=== PATIENT | male | born 2000 | race Hispanic/Latino ===

== ENCOUNTER 2025-05-04 23:12 | Emergency (ER) | payer OTHER ==
[2025-05-04] MEDS ORDERED: IPRATROPIUM BROM 0.5MG/2.5ML ONE (23:52)
[2025-05-04] MEDS ORDERED: ALBUTEROL 2.5 MG/3 ML NEB SOL ONE (23:52)
[2025-05-04] MEDS ORDERED: METHYLPREDNISOLONE 125 MG INJ ONE (23:53)
--- NOTE | 2025-05-05 01:33 | EDPHYS ---
Physician Documentation [facility] Name: Anuj Ko Age: 25 yrs Sex: Male : 2000 Arrival Date: 05/04/2025 Time: 23:12 Bed 3 Private MD: ED Physician Reid Mayes HPI: 05/04 23:30 This 25 yrs old Male presents to ER via Ambulatory with complaints of cp Shortness Of Breath, rib pain. 23:30 The patient has shortness of breath at rest. Onset: The symptoms/episode began/occurred cp gradually. 23:30 Associated signs and symptoms: Pertinent negatives: productive cough, fever, vomiting, cp chills, sore throat. 23:30 Patient is a 25-year-old male with past medical history significant for asthma who cp reports he ran out of his albuterol inhaler about 3 to 4 days ago. Presents to the emergency department complaining of shortness of breath and pain to his right lower rib area. Patient denies any injury or trauma to the area. Patient denies cough, congestion, sore throat and/or fever. Historical: - Allergies: 05/05 00:04 No Known Allergies; ha1 - PMHx: 00:04 Asthma; ha1 - Immunization history:: Adult Immunizations up to date. - Infectious Disease History:: Denies. - Social history:: Smoking status: Patient denies any tobacco usage or history of. ROS: 05/04 23:35 Cardiovascular: Positive for pain right lower rib area, cp 23:35 Eyes: Negative for injury, pain, redness, and discharge, cp 23:35 Constitutional: Negative for body aches, chills, fever, poor PO intake, 23:35 ENT: Negative for drainage from ear(s), ear pain, sore throat, difficulty swallowing, difficulty handling secretions, 23:35 Respiratory: Positive for shortness of breath, Negative for cough, wheezing, 23:35 Abdomen/GI: Negative for abdominal pain, vomiting, diarrhea, constipation, 23:35 Neuro: Negative for altered mental status, dizziness, headache, weakness, 23:35 All other systems are negative, Exam: 23:40 Constitutional: The patient appears in no acute distress, alert, awake, cp non-diaphoretic, non-toxic, well developed, well nourished, 23:40 Head/Face: Normocephalic, atraumatic. cp 23:40 Eyes: Periorbital structures: appear normal, Conjunctiva: normal, no exudate, no injection, Sclera: no appreciated abnormality, Lids and lashes: appear normal, bilaterally, 23:40 ENT: External ear(s): are unremarkable, Nose: is normal, Mouth: Lips: moist, Oral mucosa: moist, Posterior pharynx: Airway: no evidence of obstruction, patent, 23:40 Chest/axilla: Inspection: normal, Palpation: crepitus, is not appreciated, tenderness, that is moderate, of the right lower anterior/lateral rib area, 23:40 Cardiovascular: Rate: normal, Rhythm: regular, Edema: is not appreciated, JVD: is not appreciated, 23:40 Respiratory: the patient does not display signs of respiratory distress, Respirations: normal, no use of accessory muscles, no retractions, labored breathing, is not present, Breath sounds: are clear throughout, no decreased breath sounds, no stridor, no wheezing, 23:40 Abdomen/GI: Inspection: abdomen appears normal, Palpation: abdomen is soft and non-tender, in all quadrants, 23:40 Back: pain, is absent, ROM is normal, 23:40 Skin: no rash present. Vital Signs: 23:19 BP 122 / 87; Pulse 88; Resp 18 S; Temp 98.1(O); Pulse Ox 99% on R/A; Weight 108.86 kg; ha1 Height 5 ft. 9 in. ; 23:30 BP 115 / 85; Pulse 84; Resp 17; Pulse Ox 99% on R/A; kb4 05/05 00:00 BP 100 / 62; Pulse 76; Resp 18; Pulse Ox 100% on R/A; kb4 01:00 BP 124 / 76; Pulse 72; Resp 17; Pulse Ox 99% on R/A; kb4 01:30 BP 125 / 84; Pulse 80; Resp 16; Pulse Ox 98% on R/A; kb4 1003 23:19 Body Mass Index 35.44 (108.86 kg, 175.26 cm) ha1 MDM: 05/04 23:23 Medical Screening Exam initiated cp 05/05 00:00 Differential diagnosis: asthma, Bronchitis pneumonia, Pneumothorax reactive airway cp disease, rib fracture. 01:33 Data reviewed: vital signs, nurses notes, radiologic studies, plain films, and as a cp result, I will discharge patient. 01:33 Counseling: I had a detailed discussion with the patient and/or guardian regarding the cp historical points, exam findings, and any diagnostic results supporting the discharge/admit diagnosis, radiology results, to return to the emergency department if symptoms worsen or persist or if there are any questions or concerns that arise at home. 01:33 Response to treatment: the patient's symptoms have mildly improved after treatment, and cp as a result, I will discharge patient. 05/04 23:38 Order name: XRAY Ribs RIGHT cp Administered Medications: 00:00 Drug: MethylPrednisoLONE IVP 125 mg IVP once Route: IVP; Site: right antecubital; al5 01:00 Follow up: Response: No adverse reaction kb4 00:00 Drug: Albuterol Inhalation 2.5 mg Inhalation once Route: Inhalation; al5 01:00 Follow up: Response: No adverse reaction kb4 00:00 Drug: Ipratropium Inhalation Aerosol 0.5 mg Inhalation once Route: Inhalation; al5 01:00 Follow up: Response: No adverse reaction kb4 Disposition Summary: 05/05/25 01:33 Discharge Ordered Notes: Location: Home cp Problem: new cp Symptoms: have improved cp Condition: Stable cp Diagnosis - Intercostal pain cp - Shortness of breath cp Followup: cp - With: Private Physician - When: 2 - 3 days - Reason: Worsening of condition Discharge Instructions: - Discharge Summary Sheet cp - Chest Wall Pain cp - Shortness of Breath, Adult cp Forms: - Medication Reconciliation Form cp - Antibiotic Education cp - Prescription Opioid Use cp - Patient Portal Instructions cp - Leadership Thank You Letter cp Prescriptions: - albuterol sulfate 90 mcg/actuation Inhalation HFA Aerosol Inhaler - inhale 1 puff INHALATION route every 4 to 6 hours as needed for shortness of cp breath or wheezing; 1 unit; Refills: 0, Product Selection Permitted - Ibuprofen 800 mg Oral Tablet - take 1 tablet ORAL route every 8 hours As needed take with food; 30 tablet; cp Refills: 0, Product Selection Permitted - Medrol (Mehul) 4 mg Oral Tablets, Dose Pack - take 1 tablet ORAL route as directed - follow package instructions; 1 packet; cp Refills: 0, Product Selection Permitted Addendum: 05/08/2025 09:06 Co-signature as Attending Physician, Reid Mayes DO I reviewed the patient's care t t7 provided by the Advanced Practice Provider and agree with the diagnosis and treatment plan. Signatures: Dispatcher [employer] EDMS Navdeep Griffin PA-C PA-C cp Ayala, Heidy RN RN ha1 Marilee Luong RN RN al5 Reid Mayes DO DO tt7 Bronwyn Hines RN kb4 Corrections: (The following items were deleted from the chart) 05/04 23:39 23:39 Ribs Right+RAD.RAD.BRZ ordered. EDMS EDMS
--- NOTE | 2025-05-05 01:33 | ER ---
Nurse's Notes [facility] Name: Anuj Ko Age: 25 yrs Sex: Male : 2000 Arrival Date: 05/04/2025 Time: 23:12 Bed 3 Private MD: Diagnosis: Intercostal pain;Shortness of breath Presentation: 05/04 23:19 Chief complaint: Patient states: USES ALBUTEROL DAILY HAS RAN OUT OF ALBUTEROL FOR THE ha1 PAST 3-4 DAYS. FEELING SHORTNESS OF BREATH. RIB PAIN WHEN BREATHING OR MOVEMENT. 23:19 Coronavirus screen: Client denies travel out of the [place] in the last 14 days. Ebola ha1 Screen: No symptoms or risks identified at this time. Initial Sepsis Screen: Does the patient meet any 2 criteria? No. Patient's initial sepsis screen is negative. Does the patient have a suspected source of infection? No. Patient's initial sepsis screen is negative. Risk Assessment: Do you want to hurt yourself or someone else? Patient reports no desire to harm self or others. Onset of symptoms was May 05, 2025. 23:19 Method Of Arrival: Ambulatory ha1 23:19 Acuity: CARLA 3 ha1 Triage Assessment: 05/05 00:04 General: Appears uncomfortable, Behavior is calm, cooperative. ha1 00:05 Pain: Complains of pain in RIB PAIN Pain currently is 6 out of 10 on a pain scale. ha1 Neuro: Level of Consciousness is awake, alert, obeys commands, Oriented to person, place, time, situation. Cardiovascular: Capillary refill < 3 seconds Patient's skin is warm and dry. Respiratory: Reports shortness of breath at rest on exertion Airway is patent Respiratory effort is even, unlabored, Respiratory pattern is regular, symmetrical, Onset: The symptoms/episode began/occurred gradually, the patient has moderate shortness of breath. GI: No signs and/or symptoms were reported involving the gastrointestinal system. Historical: - Allergies: 00:04 No Known Allergies; ha1 - PMHx: 00:04 Asthma; ha1 - Immunization history:: Adult Immunizations up to date. - Infectious Disease History:: Denies. - Social history:: Smoking status: Patient denies any tobacco usage or history of. Screenin/03 23:32 [facility] ED Fall Risk Assessment (Adult) History of falling in the last 3 months, al5 including since admission No falls in past 3 months (0 pts) Confusion or Disorientation No (0 pts) Intoxicated or Sedated No (0 pts) Impaired Gait No (0 pts) Mobility Assist Device Used No (0 pt) Altered Elimination No (0 pt) Score/Fall Risk Level 0 - 2 = Low Risk Oriented to surroundings, Maintained a safe environment, Hourly rounding (assess needs \T\ fall precautionary measures) done. Abuse screen: Denies threats or abuse. Denies injuries from another. Nutritional screening: No deficits noted. Tuberculosis screening: No symptoms or risk factors identified. Assessment: 23:42 General: Appears in no apparent distress. uncomfortable, Behavior is calm, cooperative. al5 Pain: Complains of pain in right sixth rib, right seventh rib, right eighth rib and right ninth rib Pain currently is 6 out of 10 on a pain scale. Neuro: Level of Consciousness is awake, alert, obeys commands, Oriented to person, place, time, situation. Cardiovascular: Capillary refill < 3 seconds Patient's skin is warm and dry. Respiratory: Airway is patent Respiratory effort is even, unlabored, Respiratory pattern is regular, symmetrical. GI: No signs and/or symptoms were reported involving the gastrointestinal system. : No signs and/or symptoms were reported regarding the genitourinary system. EENT: No signs and/or symptoms were reported regarding the EENT system. Derm: Skin is intact, is healthy with good turgor, Skin is pink, warm \T\ dry. normal. Musculoskeletal: Circulation, motion, and sensation intact. Range of motion: intact in all extremities, Reports pain in right sixth rib, right seventh rib, right eighth rib and right ninth rib. 05/05 01:05 Reassessment: Patient appears in no apparent distress at this time. Patient and/or al5 family updated on plan of care and expected duration. Pain level reassessed. Patient is alert, oriented x 3, equal unlabored respirations, skin warm/dry/pink. Patient states feeling better. Patient states symptoms have improved. Respiratory: Breath sounds are clear bilaterally. Vital Signs: 05/04 23:19 BP 122 / 87; Pulse 88; Resp 18 S; Temp 98.1(O); Pulse Ox 99% on R/A; Weight 108.86 kg; ha1 Height 5 ft. 9 in. ; 23:30 BP 115 / 85; Pulse 84; Resp 17; Pulse Ox 99% on R/A; kb4 05/05 00:00 BP 100 / 62; Pulse 76; Resp 18; Pulse Ox 100% on R/A; kb4 01:00 BP 124 / 76; Pulse 72; Resp 17; Pulse Ox 99% on R/A; kb4 01:30 BP 125 / 84; Pulse 80; Resp 16; Pulse Ox 98% on R/A; kb4 05/04 23:19 Body Mass Index 35.44 (108.86 kg, 175.26 cm) ha1 ED Course: 05/04 23:18 Patient arrived in ED. im 23:21 Navdeep Griffin PA-C is PHCP. cp 23:21 Reid Mayes DO is Attending Physician. cp 23:30 Marilee Luong, CYNDI is Primary Nurse. al5 23:30 No provider procedures requiring assistance completed. Inserted saline lock: 20 gauge al5 in right antecubital area, using aseptic technique. Blood collected. Flushed with 10 mL NS. 23:32 Patient has correct armband on for positive identification. Bed in low position. Call al5 light in reach. Side rails up X 1. Provided Education on: plan of care. 05/05 00:04 Triage completed. ha1 00:49 XRAY Ribs RIGHT In Process Unspecified. EDMS 01:46 IV discontinued, intact, bleeding controlled, No redness/swelling at site. Pressure al5 dressing applied. Administered Medications: 00:00 Drug: MethylPrednisoLONE IVP 125 mg IVP once Route: IVP; Site: right antecubital; al5 01:00 Follow up: Response: No adverse reaction kb4 00:00 Drug: Albuterol Inhalation 2.5 mg Inhalation once Route: Inhalation; al5 01:00 Follow up: Response: No adverse reaction kb4 00:00 Drug: Ipratropium Inhalation Aerosol 0.5 mg Inhalation once Route: Inhalation; al5 01:00 Follow up: Response: No adverse reaction kb4 Medication: 05/04 23:32 VIS not applicable for this client. al5 Outcome: 05/05 01:33 Discharge ordered by . cp 01:46 Discharged to home ambulatory, with significant other, al5 01:46 Condition: good 01:46 Discharge instructions given to patient, significant other, Instructed on discharge instructions, follow up and referral plans. medication usage, Demonstrated understanding of instructions, follow-up care, medications, Prescriptions given X 3, 01:46 Patient left the ED. al5 Signatures: Dispatcher [employer] EDMS Navdeep Griffin PA-C PA-C cp Ayala, Heidy RN RN ha1 Radha Green Amanda, RN RN al5 Bronwyn Hines RN RN kb4 Corrections: (The following items were deleted from the chart) 00:07 10 23:19 Chief complaint: Patient states: USES ALBUTEROL DAILY HAS RAN OUT OF ha1 ALBUTEROL FOR THE PAST 3-4 DAYS. FEELING SHORTNESS OF BREATH ha1 05/05 00:10 00:04 General: Appears uncomfortable, Behavior is calm, cooperative, ha1 ha1 00:10 00:04 Pain: ha1 ha1
[2025-05-05 01:56] VITALS: TEMP 98.1
[2025-05-05 02:03] VITALS: BP 125/84; O2SAT 98
--- NOTE | 2025-05-05 04:23 | RAD REPORT ---
Clinical Indication: Bed Name: 3; PAIN Comparison: None FINDINGS: Right Rib Series: 4 views The AP and oblique views of the Right ribs show no displaced rib fractures. The costovertebral juncti ons are unremarkable. There are no associated pleural effusions or pneumothorax. There are no underlying pulmonary parenchy mal opacities noted to suggest pulmonary contusion. If there is further concern, followup radiographs or CT scan may be performed for complete assessment . IMPRESSION: No acute radiographic abnormality of the right ribs. Electronically signed by: Mitul Patrick MD 05/05/2025 01:03 AM CDT RP Due to temporary technical issues with the PACS/[employer] reporting system, reports are being laura d by the in-house radiologist without review as a courtesy to ensure prompt reporting the interpreting radiologist is fully responsible for the content of the report. Transcribed Date/Time: 05/05/2025 4:23 AM
== END 2025-05-05 01:46 | disposition home or self-care (01) ==
LOC: ER 23:12
DX: R07.82 Intercostal pain (principal); R06.02 Shortness of breath; J45.909 Unspecified asthma, uncomplicated
CPT/HCPCS: 71100; 96374; 99285; J7613; J7644; J2919